=== PATIENT | female | born 1950 | race Caucasian/White ===

== ENCOUNTER 2016-08-06 13:33 | Emergency (ER) | payer MEDICARE ==
[~2016-08-06] VITALS: Ht 157.5 cm; Wt 77.2 kg
[2016-08-06] MEDS ORDERED: ASPIRIN 81 MG TABLET CHEW PO ONE (14:30)
[2016-08-06 14:34] LABS: HEMOGLOBIN 13.5 g/dL (11.7-16.4)
[2016-08-06 14:42] LABS: BLOOD UREA NITROGEN 12 mg/dL (7-18)
[2016-08-06] MEDS ORDERED: SIMV20TA3 PO (14:47)
[2016-08-06] MEDS ORDERED: HYDR25TA6 PO (14:47)
[2016-08-06] MEDS ORDERED: RALO60TA12 PO (14:47)
[2016-08-06] MEDS ORDERED: OMEP40CA6 PO (14:47)
[2016-08-06 14:50] LABS: IS PT STATUS REG ER OR PRE ER? YES
[2016-08-06] MEDS ORDERED: ASPIRIN 81 MG TABLET CHEW ONE (14:53)
[2016-08-06] MEDS ORDERED: POTASSIUM CHLORIDE 20 MEQ TAB.ER.PRT ONE (15:49)
[2016-08-06 15:55] VITALS: BP 136/82
[2016-08-06] MEDS ORDERED: POTASSIUM CHLORIDE 20 MEQ TAB.ER.PRT PO ONE (16:00)
== END 2016-08-06 16:10 | disposition home or self-care (01) ==
LOC: ED 15:18
DX: R00.2 Palpitations (principal); E87.6 Hypokalemia; I10 Essential (primary) hypertension; K21.9 Gastro-esophageal reflux disease without esophagitis; E78.00 Pure hypercholesterolemia, unspecified; Z90.10 Acquired absence of unspecified breast and nipple
CPT/HCPCS: 36415; 71010; 80048; 82040; 83880; 84484; 85025; 93005